=== PATIENT | male | born 1990 | race Caucasian/White ===

== ENCOUNTER 2019-03-30 22:39 | Emergency (ER) | payer OTHER ==
[~2019-03-30] VITALS: Ht 175.3 cm; Wt 81.8 kg
[2019-03-30 23:41] VITALS: BP 121/69
== END 2019-03-30 23:41 | disposition home or self-care (01) ==
LOC: M ED 22:39
DX: S01.01XA Laceration without foreign body of scalp, initial encounter (principal); W00.0XXA Fall on same level due to ice and snow, initial encounter; Y92.018 Other place in single-family (private) house as the place of occurrence of the external cause; F17.220 Nicotine dependence, chewing tobacco, uncomplicated